=== PATIENT | female | born 1960 | race African-American/Black ===

== ENCOUNTER 2022-10-22 06:29 | Day surgery (SDC) | payer OTHER ==
[~2022-10-22] VITALS: Ht 154.9 cm; Wt 76.7 kg
[2022-10-22] MEDS ORDERED: diphenhydrAMINE 50 MG/ML VIAL ONE (07:23)
[2022-10-22] MEDS ORDERED: fentaNYL citrate 0.05 MG/ML VIAL ONE (07:23)
[2022-10-22] MEDS ORDERED: LIDOCAINE 2% 100 MG/5 ML UJET TP ONE (07:24)
[2022-10-22] MEDS ORDERED: MIDAZOLAM 5 MG/5 ML VIAL ONE (07:24)
[2022-10-22] MEDS ORDERED: MIDAZOLAM 5 MG/5 ML VIAL IV ONE (08:20)
[2022-10-22] MEDS ORDERED: diphenhydrAMINE 50 MG/ML VIAL IVP ONE (08:20)
[2022-10-22] MEDS ORDERED: fentaNYL citrate 0.05 MG/ML VIAL IVP ONE (08:20)
== END 2022-10-22 08:54 | disposition home or self-care (01) ==
LOC: MMU 06:29 → MOR 06:29
PROVIDERS: ATTEND Internal Medicine Gastroenterology
DX: Z12.11 Encounter for screening for malignant neoplasm of colon (principal); D12.3 Benign neoplasm of transverse colon; I10 Essential (primary) hypertension; E11.9 Type 2 diabetes mellitus without complications; F32.A Depression, unspecified; E78.00 Pure hypercholesterolemia, unspecified; F41.9 Anxiety disorder, unspecified; Z86.73 Personal history of transient ischemic attack (TIA), and cerebral infarction without residual deficits; Z88.0 Allergy status to penicillin; Z79.899 Other long term (current) drug therapy
CPT/HCPCS: 45380; 45385; 87426; J1200; J2250; J3010